=== PATIENT | male | born 1950 | race Caucasian/White ===

== ENCOUNTER 2017-03-03 21:02 | Emergency (ER) | payer SELFPAY ==
[2017-03-03] MEDS ORDERED: LIDOCAINE 1%/EPINEPHRINE 20ML VIAL IJ ONE ×2 (21:16→21:55)
--- NOTE | 2017-03-03 21:19 | ED Physician Documentation ---
General Adult - HISTORIAN Historian: patient - HPI Stated Complaint: Laceration Chief Complaint: General Adult Onset: minutes Timing: still present Severity: mild Further Comments: yes (Pt is a 66 yo male with a laceration to his L eyebrow. Pt fell onto a concrete floor at home. Tetanus is not utd.) - ROS CONST: no problems EYES/ENT: other (laceration L brow) CVS/RESP: none GI/: none MS/SKIN/LYMPH: other (laceration L eyebrow) - PAST HX Past History: other (DM, HTN, HLD) Allergies/Adverse Reactions: Allergies Allergy/AdvReac Type Severity Reaction Status Date / Time Sulfa (Sulfonamide AdvReac Intermediate Vomiting Verified 03/03/17 21:30 Antibiotics) Home Medications: Ambulatory Orders Medication Instructions Recorded Atorvastatin Calcium 40 mg PO DAILY 03/03/17 Lisinopril [Zestril] 10 mg PO DAILY 03/03/17 Metformin HCl [Glucophage] 500 mg PO DAILY 03/03/17 - SOCIAL HX Smoking History: cigarettes - FAMILY HX Family History: No - VITAL SIGNS Vital Signs: Vital Signs Temp Pulse Resp BP Pulse Ox 77 139/104 03/03/17 21:02 03/03/17 21:02 - REVIEWED ASSESSMENTS Nursing Assessment Reviewed: Yes Vitals Reviewed: Yes Procedures Wound Location: head, other (L eyebrow) Wound's Depth, Shape: linear Wound Explored: no foreign body removed Irrigated w/ Saline (ccs): 20 Betadine Prep?: No (Shur-clens prep) Anesthesia: Lidocaine w/ Epi Wound Debrided: minimal Wound Repaired With: sutures Suture Size/Type: 4:0, nylon Number of Sutures: 4 Layer Closure?: No Sterile Dressing Applied?: Yes Progress - Progress Progress: Tdap 0.5 ml IM topical abx suture removal in 5 - 7 days. ED Results Lab/Radiology - Orders Orders: ED Orders Category Date Time Status Lidocaine 1%/Epinephrine [Xylocaine 1%-EPI 1:100,000] Med 03/03/17 21:16 Discontinued 1 ml IJ .STK-MED ONE General Adult Physical Exam - PHYSICAL EXAM GENERAL APPEARANCE: mild distress EENT: eye inspection normal, pharynx normal NECK: normal inspection, supple RESPIRATORY: no resp distress, chest non-tender, breath sounds normal CVS: reg rate & rhythm, heart sounds normal BACK: normal inspection SKIN: other (2.5 cm laceration L eyebrow) EXTREMITIES: non-tender, normal range of motion, no evidence of injury NEURO: oriented X3, motor nml, sensation nml Discharge Clincal Impression: L eyebrow laceration Referrals: Tim Long MD [Primary Care Provider] - Condition: Good Disposition: 01 HOME, SELF-CARE Decision to Admit: NO Decision Time: 21:44
[2017-03-03] MEDS ORDERED: DIPH,PERTUSS(ACELL),TET VAC/PF 0.5 ML DISP.SYRIN IM ONE (21:56)
[2017-03-03 22:04] VITALS: BP 148/92
== END 2017-03-03 21:50 | disposition home or self-care (01) ==
LOC: ED 21:02
DX: S01.112A Laceration without foreign body of left eyelid and periocular area, initial encounter (principal); W19.XXXA Unspecified fall, initial encounter; Y93.9 Activity, unspecified; Y99.9 Unspecified external cause status
CPT/HCPCS: 12011; 90471; 90715; 99283